=== PATIENT | female | born 1980 | race Caucasian/White ===

== ENCOUNTER 2020-04-20 09:46 | Emergency (ER) | payer OTHER, SELFPAY ==
[2020-04-20 10:02] VITALS: BP 120/74; PULSE 111; RESP 18; TEMP 36.7; O2SAT 100
--- NOTE | 2020-04-20 10:27 | ED.GENADULT ---
HPI - General Adult General Chief complaint: Headache Stated complaint: Migraine Source: patient Mode of arrival: ambulatory Limitations: no limitations History of Present Illness HPI narrative: Patient presents for evaluation of headache for the last 6 days. She indicates she had migraines throughout her adolescence and early 20s. These seem to have resolved. She has had a few bouts of headaches since that time, particularly when she stopped taking a PPI abruptly. She went back on the medication and weaned off without problems. She states that she has had a frontal, bilateral retro-orbital and bilateral temporal headache for the last 6 days, that she describes as mild . She has associated photophobia and nausea and vomiting. She tried taking ibuprofen and Excedrin which seemed to alleviate her symptoms. She reports some lightheadedness. She has an underlying history of interstitial cystitis and bipolar disorder. Denies any aphasia, dysphagia, lateralizing deficits. She reports seeing white spots and images intermittently. No additional complaints or concerns. Related Data Home Medications Medication Instructions Recorded Confirmed Lactobacillus acidophilus 10,000 mmu cells PO DAILY 04/20/20 04/20/20 [Probiotic] cetirizine [Zyrtec] 10 mg PO DAILY PRN 04/20/20 04/20/20 famotidine [Pepcid] 20 mg PO DAILY PRN 04/20/20 04/20/20 fluoxetine [Prozac] 10 mg PO DAILY 04/20/20 04/20/20 lamotrigine [Lamictal] 100 mg PO DAILY 04/20/20 04/20/20 Allergies Allergy/AdvReac Type Severity Reaction Status Date / Time No Known Allergies Allergy Verified 04/20/20 10:13 Review of Systems Review of Systems: Narrative: CONSTITUTIONAL: Denies fever, chills, or sweats. EYES: Denies visual changes, redness, or discharge. Reports photophobia and seeing white spots and images . ENT: Denies rhinorrhea, congestion, sore throat, or otalgia. CARDIOVASCULAR: Denies chest pain, palpitations, or edema. RESPIRATORY: Denies cough or dyspnea. GASTROINTESTINAL: Denies abdominal pain or diarrhea. Reports intermittent nausea and vomiting. GENITOURINARY: Denies dysuria or hematuria. SKIN: Denies rash or itching. MUSCULOSKELETAL: Denies back pain, joint pain, or myalgia. NEUROLOGIC: Denies numbness, dizziness, or weakness. Reports headache and lightheadedness PSYCHIATRIC: Denies anxiety or depression. [facility] Past Medical History Medical History (Updated 04/20/20 @ 10:38 by JACINDA SamaniegoP, ) Bipolar disorder Interstitial cystitis Surgical History Surgical History History of rectal surgery Family History Family History Mother No pertinent past medical history Social History Social History Smoking status: Never smoker Alcohol intake: former Substance use type: marijuana Living arrangements: with family Gender identity (if verbalized by the patient): Female Sexual Orientation (if Verbalized by the Patient): Straight or Heterosexual Exam Narrative: Exam Narrative: GENERAL: Well-appearing, well-nourished, and in no acute distress. Wearing sunglasses during exam HEAD: Normocephalic, atraumatic. EYES: PERRLA and EOMI. ENT: Nares clear, no rhinorrhea or epistaxis. Mucous membranes moist. Oropharynx without tonsillar hypertrophy exudate or other lesions. Bilateral TMs pearly stahl nonbulging NECK: Supple. No adenopathy or masses. No carotid bruits or JVD CHEST: Clear to auscultation. No respiratory distress. No wheezes rales or rhonchi HEART: Regular rate and rhythm. No murmur heard. Normal peripheral pulses. ABDOMEN: Soft, nontender, nondistended, normal active bowel sounds. EXTREMITIES: Normal range of motion. No edema. SKIN: Warm, dry, no rash. NEURO: No focal deficits. Alert and oriented x3. PSYCH: Normal mood and affect. Course C
[2020-04-20] MEDS: diphenhydrAMINE HCl CAP 25 MG CAPSULE PO (10:47)
[2020-04-20] MEDS: KETOROLAC (*BKC) 60 MG/2 ML VIAL IM (10:47)
== END 2020-04-20 11:22 | disposition home or self-care (01) ==
PROVIDERS: Emergency Provider Nurse Practitioner
DX: G43.901 Migraine, unspecified, not intractable, with status migrainosus (principal); F31.9 Bipolar disorder, unspecified
CPT/HCPCS: 96372; 99203; A9270; G0463; J1885